=== PATIENT | female | born 1950 | race Caucasian/White ===

== ENCOUNTER → 2020-04-09 10:25 | Outpatient (BNVA) | payer BC, SELFPAY | PROVIDERS: Family Provider Family Medicine; PCP Family Medicine; Visit Provider Family Medicine | DX: R53.83 Other fatigue (principal); U07.1 COVID-19; R53.1 Weakness; E86.0 Dehydration | CPT/HCPCS: 80053; 85025 ==

== ENCOUNTER → 2021-02-19 09:34 | Outpatient (BNVA) | payer BC, SELFPAY | PROVIDERS: Family Provider Family Medicine; PCP Family Medicine; Visit Provider Family Medicine | DX: M25.542 Pain in joints of left hand (principal); M18.9 Osteoarthritis of first carpometacarpal joint, unspecified | CPT/HCPCS: 73130 ==

== ENCOUNTER → 2022-11-19 14:21 | Outpatient (BNVA) | payer MEDICARE, SELFPAY | PROVIDERS: Family Provider Family Medicine; PCP Family Medicine; Visit Provider Nurse Practitioner Family | DX: L50.0 Allergic urticaria (principal); L50.9 Urticaria, unspecified | CPT/HCPCS: 86003 ==

== ENCOUNTER → 2022-11-23 17:20 | Outpatient (BNVA) | payer MEDICARE, SELFPAY | PROVIDERS: Family Provider Family Medicine; PCP Family Medicine; Visit Provider Nurse Practitioner Family | DX: L50.0 Allergic urticaria (principal) | CPT/HCPCS: 86008 ==

== ENCOUNTER → 2023-05-10 10:55 | Outpatient (BNVA) | payer MEDICARE, SELFPAY | PROVIDERS: Family Provider Family Medicine; PCP Family Medicine; Visit Provider Family Medicine | DX: J02.9 Acute pharyngitis, unspecified (principal) | CPT/HCPCS: 87071; 87880 ==

== ENCOUNTER → 2023-08-26 09:07 | Outpatient (BNVA) | payer MEDICARE, SELFPAY | PROVIDERS: Family Provider Family Medicine; PCP Nurse Practitioner Family; Referring Provider Nurse Practitioner Family; Visit Provider Surgery | DX: Z12.11 Encounter for screening for malignant neoplasm of colon (principal); K21.9 Gastro-esophageal reflux disease without esophagitis; T78.1XXA Other adverse food reactions, not elsewhere classified, initial encounter; X58.XXXA Exposure to other specified factors, initial encounter | CPT/HCPCS: 99204 ==

== ENCOUNTER 2023-10-04 10:46 | Outpatient (CLI) | payer MEDICARE, SELFPAY ==
--- NOTE | 2023-10-04 11:00 | MM_ITS ---
WS: [id number] DIAGNOSTIC BILATERAL DIGITAL BREAST TOMOSYNTHESIS MAMMOGRAPHY WITH CAD LEFT breast ultrasound, limited HISTORY: N63.0 - Unspecified lump in unspecified breast COMPARISON: None available. TECHNIQUE: Bilateral craniocaudad, mediolateral oblique, and mediolateral views are submitted with to mosynthesis and SM. Spot compression LEFT MLO. Computer aided detection utilized. Breast composition: There are scattered areas of fibroglandular density. Palpable marker is placed al giacomo the lateral LEFT breast near 3:00 towards the upper outer quadrant. There is a bandlike area of s light increased density. There is no mass. No suspicious grouping of calcifications. LEFT breast ultrasound, limited. Ultrasound is directed to the lateral LEFT breast in the area of previously described mass. There is no abnormality identified. Note: The mass that was clinically described has since resolved. MM/[place] [id number] IMPRESSION: BI-RADS: 2-Benign FOLLOW UP: 1 Year Follow-up
--- NOTE | 2023-10-04 11:15 | US_ITS ---
WS: [id number] DIAGNOSTIC BILATERAL DIGITAL BREAST TOMOSYNTHESIS MAMMOGRAPHY WITH CAD LEFT breast ultrasound, limited HISTORY: N63.0 - Unspecified lump in unspecified breast COMPARISON: None available. TECHNIQUE: Bilateral craniocaudad, mediolateral oblique, and mediolateral views are submitted with to mosynthesis and SM. Spot compression LEFT MLO. Computer aided detection utilized. Breast composition: There are scattered areas of fibroglandular density. Palpable marker is placed al giacomo the lateral LEFT breast near 3:00 towards the upper outer quadrant. There is a bandlike area of s light increased density. There is no mass. No suspicious grouping of calcifications. LEFT breast ultrasound, limited. Ultrasound is directed to the lateral LEFT breast in the area of previously described mass. There is no abnormality identified. Note: The mass that was clinically described has since resolved. US/US breast LT limited* [id number] IMPRESSION: BI-RADS: 2-Benign FOLLOW UP: 1 Year Follow-up
== END 2023-10-04 10:47 | disposition home or self-care (01) ==
LOC: RAD 10:48
PROVIDERS: Family Provider Family Medicine; PCP Nurse Practitioner Family; Visit Provider Nurse Practitioner Family
DX: N63.0 Unspecified lump in unspecified breast (principal); R92.323 Mammographic fibroglandular density, bilateral breasts
CPT/HCPCS: 76642; 77062; G0279

== ENCOUNTER 2023-11-03 06:21 | Day surgery (SDC) | payer MEDICARE, SELFPAY ==
[2023-11-03 06:42] VITALS: BP 125/54; PULSE 67; RESP 16; TEMP 36.5; O2SAT 96; BMI 25.0
[2023-11-03] MEDS: sodium chloride 0.9% 1,000 ML 30 ML IV (06:51)
--- NOTE | 2023-11-03 07:21 | PM.HP ---
Providers/Chief Complaint Primary Care Provider: Hayden Manjarrez DO Chief Complaint: Z12.11, K21.9 History of Present Illness Shae Garay is a 73 year old female Review of Systems General: Reports: 10 or more systems reviewed and unremarkable except in HPI and below Medications/Allergies Home Medications Medication Instructions Recorded Confirmed Last Taken Type pilocarpine HCl 1 applic ophthalmic (eye) DAILY 11/06/19 11/03/23 11/02/23 History diclofenac sodium 1 % topical gel 4 g topical QID #100 grams 02/19/21 11/01/23 Unknown Rx (Voltaren Arthritis Pain) epinephrine 0.3 mg/0.3 mL 0.3 mg (0.3 mL) IM Q10M PRN 11/19/22 11/01/23 Unknown Rx injection syringe anaphylaxis #2 ea fexofenadine 180 mg tablet 180 mg PO Q24H #90 tabs 10/26/23 11/03/23 11/02/23 Rx (Dayana Allergy) clobetasol 0.05 % topical cream 1 applic topical .COMPLEX PRN Rash 11/01/23 11/01/23 Unknown History Allergies Allergy/AdvReac Type Severity Reaction Status Date / Time Alpha-Gal Allergy Severe hives Verified 11/01/23 09:57 (Drptwhril-Jcdzs-7,3-Gala PFSH Acute PFSH: Family History Sister Colon cancer Family/Other Cancer either end of stomach or end of intestines Social History Smoking and tobacco/nicotine status: never used tobacco/nicotine Alcohol intake: current Alcohol intake frequency: holidays/special occasions only Substance/Drug Use: never Vitals/I&O/Wt Last Vital Signs Temp 97.7 F 11/03/23 06:42 Pulse 67 11/03/23 06:42 Resp 16 11/03/23 06:42 BP 125/54 11/03/23 06:42 Pulse Ox 96 11/03/23 06:42 O2 Del Method Room Air 11/03/23 06:42 Weight last 48 hrs Weight 146 lb A&P Assessment and plan (1) Encounter for screening colonoscopy: (2) GERD (gastroesophageal reflux disease): Plan EGD and colonoscopy The risks and benefits of the procedure, including bleeding, infection, intestinal perforation requiring surgery, missed lesion were explained to the patient. The patient is understanding of the risks and wishes to proceed. Attestations Medical Necessity Statement*: Home Coding Level of Care Code Acute Code for Chg Fwd Diagnoses Encounter for screening colonoscopy Z12.11 GERD (gastroesophageal reflux disease) K21.9
--- NOTE | 2023-11-03 07:37 | ANES.PREANE2 ---
Pre-Anesthetic Assessment Height/Weight: Height 5 ft 4 in Weight 146 lb Temp Pulse Resp BP Pulse Ox O2 Del Method 97.7 F 67 16 125/54 96 Room Air 11/03/23 06:42 11/03/23 06:42 11/03/23 06:42 11/03/23 06:42 11/03/23 06:42 11/03/23 06:42 Operation Date: 11/03/23 07:30 Proposed Procedures p Colonoscopy 76933, G0121, Z12.11, 94163, K21.9(Not Applicable) - Janes Coffman DO s EGD(Not Applicable) - Janes Coffman DO Last intake: Intake Last Liquid Date 11/02/23 Last Liquid Time 23:00 Last Solid Date 11/01/23 Last Solid Time 20:00 Social No alcohol and No tobacco Exam alert, oriented x 3, clear to auscultation bilaterally and regular rate & rhythm Airway Submandibular: within normal limits Cervical ROM: within normal limits Mallampati: Class III Dentition: full Comments: Comments: few missing molars Pulmonary None reported Anesthetic Plan ASA status: 2 Anesthesia: MAC Other: No prior issues with anesthesia Patient completed prep Alpha gal noted Patient denies cardiac or pulmonary issues Ejection flow murmur noted on exam, patient states that she has been told this previously. She denies any symptoms METS greater than 4 Plan for MAC anesthesia Medications/Allergies Home Medications Medication Instructions Recorded Confirmed Last Taken Type pilocarpine HCl 1 applic ophthalmic (eye) DAILY 11/06/19 11/03/23 11/02/23 History diclofenac sodium 1 % topical gel 4 g topical QID #100 grams 02/19/21 11/01/23 Unknown Rx (Voltaren Arthritis Pain) epinephrine 0.3 mg/0.3 mL 0.3 mg (0.3 mL) IM Q10M PRN 11/19/22 11/01/23 Unknown Rx injection syringe anaphylaxis #2 ea fexofenadine 180 mg tablet 180 mg PO Q24H #90 tabs 10/26/23 11/03/23 11/02/23 Rx (Dayana Allergy) clobetasol 0.05 % topical cream 1 applic topical .COMPLEX PRN Rash 11/01/23 11/01/23 Unknown History Allergies Allergy/AdvReac Type Severity Reaction Status Date / Time Alpha-Gal Allergy Severe hives Verified 11/01/23 09:57 (Hhzyeghgl-Bpiwx-5,3-Gala Current Medications Generic Name Dose Route Start Last Admin Trade Name Freq PRN Reason Stop Dose Admin Sodium Chloride 1,000 mls @ 30 mls/hr 11/03/23 06:30 11/03/23 06:51 Sodium Chloride 0.9% IV 11/04/23 06:29 30 mls/hr .Q24H LAVON Administration PFSH Anesthesia Family History Sister Colon cancer Family/Other Cancer either end of stomach or end of intestines Social History Smoking and tobacco/nicotine status: never used tobacco/nicotine Alcohol intake: current Alcohol intake frequency: holidays/special occasions only Substance/Drug Use: never Data Anesthesia Cardiac Studies: No Data to Display
[2023-11-03 07:52] VITALS: BP 110/54; PULSE 69; RESP 18; TEMP 36.2; O2SAT 98
[2023-11-03 08:05] VITALS: BP 109/58; PULSE 67; RESP 16; O2SAT 99
--- NOTE | 2023-11-03 13:07 | ANE.PACU2 ---
Inpatient post-anesthesia follow up: Airway intact: Yes Vital signs: Temperature 97.2 F Pulse Rate 67 Respiratory Rate 16 Blood Pressure 109/58 Pulse Oximetry 99 Oxygen Delivery Me thod Room Air Oxygen Flow Rate Fraction of Inspir ed Oxygen Hydration adequate: Yes Nausea and vomiting: No Pain level: 1 Mental status: Baseline
== END 2023-11-03 08:34 | disposition home or self-care (01) ==
PROVIDERS: Family Provider Family Medicine; PCP Family Medicine; Visit Provider Surgery
PROC: 0DJD8ZZ Inspection of Lower Intestinal Tract, Via Natural or Artificial Opening Endoscopic (ICD-10-PCS; CPT 45378; principal; 2023-11-03 07:30)
PROC: 0DJ08ZZ Inspection of Upper Intestinal Tract, Via Natural or Artificial Opening Endoscopic (ICD-10-PCS; CPT 43235; 2023-11-03 07:30)
DX: Z12.11 Encounter for screening for malignant neoplasm of colon (principal); K21.9 Gastro-esophageal reflux disease without esophagitis; K29.50 Unspecified chronic gastritis without bleeding
CPT/HCPCS: 43239; 88305; 88342; G0121; J2704; J7030

== ENCOUNTER → 2023-11-22 10:07 | Outpatient (BNVA) | payer MEDICARE, SELFPAY | PROVIDERS: Family Provider Family Medicine; PCP Family Medicine; Visit Provider Surgery | DX: R03.0 Elevated blood-pressure reading, without diagnosis of hypertension; K80.50 Calculus of bile duct without cholangitis or cholecystitis without obstruction; R14.0 Abdominal distension (gaseous); Z91.018 Allergy to other foods; K21.9 Gastro-esophageal reflux disease without esophagitis | CPT/HCPCS: 99214 ==

== ENCOUNTER 2023-12-03 09:17 | Outpatient (CLI) | payer MEDICARE, SELFPAY ==
--- NOTE | 2023-12-03 09:30 | US_ITS ---
WS: [id number] RIGHT UPPER QUADRANT ULTRASOUND HISTORY: abdominal pain COMPARISON: None available. Liver: 13.8 cm in length. Normal size liver and echogenicity. No bile duct dilatation or mass. Portal Vein: Normal hepatopetal flow with monophasic waveform. Gallbladder: Normally distended gallbladder with no stones or wall thickening. CBD: 0.3 cm Pancreas: Normal size and echogenicity. Right kidney: 8.2 cm in length. Normal size and echogenicity. No hydronephrosis or mass. Aorta and IVC: Unremarkable abdominal aorta and IVC. No ascites. US/US gall bladder [id number] IMPRESSION: Normal right upper quadrant ultrasound.
== END 2023-12-03 09:18 | disposition home or self-care (01) ==
LOC: RAD 09:18
PROVIDERS: Family Provider Family Medicine; PCP Family Medicine; Visit Provider Surgery
DX: R10.9 Unspecified abdominal pain (principal)
CPT/HCPCS: 76705

== ENCOUNTER 2024-01-04 07:38 | Outpatient (CLI) | payer MEDICARE, SELFPAY ==
--- NOTE | 2024-01-04 08:00 | NM_ITS ---
WS: [id number] NUCLEAR MEDICINE HIDA SCAN WITH GALLBLADDER EJECTION FRACTION HISTORY: abdominal pain COMPARISON: 12/03/2023 TECHNIQUE: The patient was intravenously injected with 5.0 mCi of TC99m Mebrofenin. Immediate imaging over the right upper quadrant was followed by 5 minute image and additional images for a total of 60 minutes. Normal uptake of radiotracer throughout the liver. Activity identified in the gallbladder at 10 minutes and well distended by 60 minutes. Activity in the proximal small bowel was seen by 20 minutes. Good washout of the radiotracer from the liver by 60 minutes. The patient then drank 8 ounces of Ensure Plus. Ejection fraction at 60 minutes was 82%. Normal GB ej ection fraction is 35-75%. Post fatty meal symptoms: None. NM/NM hepatobiliary w phar* [id number] IMPRESSION: 1. Normal HIDA scan. 2. Normal gallbladder ejection fraction.
== END 2024-01-04 07:39 | disposition home or self-care (01) ==
PROVIDERS: Family Provider Family Medicine; PCP Family Medicine; Visit Provider Surgery
DX: R10.9 Unspecified abdominal pain (principal)
CPT/HCPCS: 78227; A9537

== ENCOUNTER → 2024-01-10 10:51 | Outpatient (BNVA) | payer MEDICARE, SELFPAY | PROVIDERS: Family Provider Family Medicine; PCP Family Medicine; Visit Provider Surgery | DX: K82.8 Other specified diseases of gallbladder (principal); K80.50 Calculus of bile duct without cholangitis or cholecystitis without obstruction; R14.0 Abdominal distension (gaseous) | CPT/HCPCS: 99214 ==

== ENCOUNTER → 2024-01-12 09:30 | Outpatient (BNVA) | payer MEDICARE, SELFPAY | PROVIDERS: Family Provider Family Medicine; PCP Family Medicine; Visit Provider Nurse Practitioner Family | DX: Z13.6 Encounter for screening for cardiovascular disorders (principal); L50.0 Allergic urticaria | CPT/HCPCS: 80053; 80061; 86003 ==

== ENCOUNTER 2024-01-25 06:38 | Day surgery (SDC) | payer MEDICARE, SELFPAY ==
[2024-01-25] VITALS (17 sets, daily range): BP systolic 91–146; BP diastolic 37–72; PULSE 57–79; RESP 16–18; TEMP 36.1–36.2; O2SAT 93–98; BMI 25.2
--- NOTE | 2024-01-25 06:55 | W.PM.OPSUD ---
Surgery/Procedure H&P Update DATE OF PROCEDURE: January 25, 2024 DATE H&P PERFORMED: 01/10/24 H&P UPDATE INFORMATION: I have reviewed H&P completed within last 30 days, I have examined patient prior to procedure and No changes to prior documentation PLANNED PROCEDURE: Operation Date: 01/25/24 08:20 Proposed Procedures p Laparoscopic Cholecystectomy 07071, K80.50, k82.8(Not Applicable) - Janes Coffman, DO
[2024-01-25] MEDS: sodium chloride 0.9% 1,000 ML 30 ML IV (07:19)
[2024-01-25] MEDS: ceFAZolin 2,000 mg SDV 2000 MG IVP (07:56)
--- NOTE | 2024-01-25 07:58 | ANES.PREANE2 ---
Pre-Anesthetic Assessment Height/Weight: Height 5 ft 4 in Weight 147 lb Temp Pulse Resp BP Pulse Ox O2 Del Method 97.2 F L 63 18 146/67 97 Room Air 01/25/24 07:02 01/25/24 07:02 01/25/24 07:02 01/25/24 07:02 01/25/24 07:02 01/25/24 07:02 Operation Date: 01/25/24 08:20 Proposed Procedures p Laparoscopic Cholecystectomy 38307, K80.50, k82.8(Not Applicable) - Janes Coffman DO Last intake: Intake Last Liquid Date 01/24/24 Last Liquid Time 19:30 Last Solid Date 01/24/24 Last Solid Time 19:30 Social No alcohol and No tobacco Exam alert, oriented x 3, clear to auscultation bilaterally and regular rate & rhythm Airway Submandibular: within normal limits Cervical ROM: within normal limits Mallampati: Class III Dentition: full Anesthetic Plan ASA status: 2 Anesthesia: General Other: No prior issues with anesthesia NPO since yesterday History of GERD on Protonix Labs 01/12/2024 reviewed and acceptable for procedure Patient denies any cardiac or pulmonary issues METs greater than 4 Plan for general anesthesia Medications/Allergies Home Medications Medication Instructions Recorded Confirmed Last Taken Type pilocarpine HCl 1 applic ophthalmic (eye) DAILY 11/06/19 01/24/24 01/23/24 History diclofenac sodium 1 % topical gel 4 g topical QID #100 grams 02/19/21 01/24/24 Unknown Rx (Voltaren Arthritis Pain) epinephrine 0.3 mg/0.3 mL 0.3 mg (0.3 mL) IM Q10M PRN 11/19/22 01/24/24 Unknown Rx injection syringe anaphylaxis #2 ea fexofenadine 180 mg tablet 180 mg PO Q24H #90 tabs 10/26/23 01/24/24 11/02/23 Rx (Dayana Allergy) clobetasol 0.05 % topical cream 1 applic topical .COMPLEX PRN Rash 11/01/23 01/24/24 01/22/24 History pantoprazole 40 mg tablet,delayed 40 mg PO DAILY #30 tabs 11/03/23 01/24/24 01/24/24 Rx release Allergies Allergy/AdvReac Type Severity Reaction Status Date / Time Alpha-Gal Allergy Severe hives Verified 01/10/24 10:55 (Btqquhyaf-Gefzk-2,3-Gala Current Medications Generic Name Dose Route Start Last Admin Trade Name Freq PRN Reason Stop Dose Admin Sodium Chloride 1,000 mls @ 30 mls/hr 01/25/24 07:00 01/25/24 07:19 Sodium Chloride 0.9% IV 01/26/24 06:59 30 mls/hr .Q24H LAVON Administration PFSH Anesthesia Family History Sister Colon cancer Family/Other Cancer either end of stomach or end of intestines Social History Smoking and tobacco/nicotine status: never used tobacco/nicotine Alcohol intake: current Alcohol intake frequency: holidays/special occasions only Substance/Drug Use: never Data Anesthesia Cardiac Studies: No Data to Display
[2024-01-25] MEDS: lidocaine-epi 2% PF 1:200,000 20 mL SDV XX (08:22)
--- NOTE | 2024-01-25 08:45 | P.OP_ITS ---
Operative Report Date of procedure: January 25, 2024 Surgeon: Janes Coffman DO Brief History: This is a very pleasant 74-year-old female who presented my office with abdominal pain. She is diagnosed with biliary dyskinesia. Laparoscopic cholecystectomy was indicated. The risks and benefits were explained and documented. Procedure: Preoperative diagnosis: Biliary dyskinesia Postoperative diagnosis: Same Procedure performed: Laparoscopic cholecystectomy Surgeon: Dr. Janes Coffman DO Estimated blood loss: 5 mL Specimens: Gallbladder to pathology Complications: None apparent Description of procedure: Patient was wheeled into the operative room and placed on the OR table in a supine position. Abdomen was inspected prepped and draped in usual sterile fashion. Time-out was performed and all present were in agreement. A 15 blade scalp was used to make a stab incision in the left upper quadrant and intra- abdominal insufflation was achieved using a Veress needle. After localizing the tissue incisions were made and a 5 millimeter trocar was placed into the umbilicus as well as 2 in the right upper quadrant. A 12 millimeter trocar was placed in the epigastrium. Gallbladder was grasped and elevated. The triangle of Calot was carefully dissected using blunt dissection and electrocautery until the triangle of Calot clearly identified. The cystic duct was clipped proximally and double clipped distally. The duct was then ligated proximally. The cystic artery was doubly clipped and ligated. The gallbladder was then removed from the liver bed using electrocautery. The gallbladder was removed from the abdomen using an Endo-Catch bag through the epigastric incision. The liver bed was inspected and no bleeding was seen. The abdomen was irrigated and suctioned. All ports removed. Skin was washed and dried. Incisions were closed with 4-0 Monocryl in a subcuticular interrupted fashion. Skin glue was applied. Patient tolerated the procedure well.
[2024-01-25] MEDS: fentaNYL 50 mcg/mL INJ 2mL IVP (09:30)
[2024-01-25] MEDS: ondansetron 2 mg/ML SDV 2 mL 4 MG IVP (09:40)
[2024-01-25] MEDS: HYDROcodone-acetaminophen 7.5-325 mg Tablet 1 TAB PO (10:47)
--- NOTE | 2024-01-25 11:45 | ANE.PACU2 ---
Inpatient post-anesthesia follow up: Airway intact: Yes Vital signs: Temperature 97 F Pulse Rate 65 Respiratory Rate 18 Blood Pressure 124/56 Pulse Oximetry 98 Oxygen Delivery Me thod Room Air Oxygen Flow Rate Fraction of Inspir ed Oxygen Hydration adequate: Yes Nausea and vomiting: No Pain level: 1 Mental status: Baseline
== END 2024-01-25 11:45 | disposition home or self-care (01) ==
PROVIDERS: Family Provider Family Medicine; PCP Family Medicine; Visit Provider Surgery
PROC: 0FT44ZZ Resection of Gallbladder, Percutaneous Endoscopic Approach (ICD-10-PCS; CPT 47562; principal; 2024-01-25 08:10)
DX: K81.1 Chronic cholecystitis (principal); K21.9 Gastro-esophageal reflux disease without esophagitis
CPT/HCPCS: 47562; 88304; J0690; J1100; J2250; J2405; J2710; J3010; J3490; J7030

== ENCOUNTER → 2024-02-07 09:07 | Outpatient (BNVA) | payer MEDICARE, SELFPAY | PROVIDERS: Family Provider Family Medicine; PCP Family Medicine; Visit Provider Surgery | DX: Z91.018 Allergy to other foods (principal); K21.9 Gastro-esophageal reflux disease without esophagitis | CPT/HCPCS: 99214 ==

== ENCOUNTER → 2024-07-26 13:00 | Outpatient (BNVA) | payer MEDICARE, SELFPAY | PROVIDERS: PCP Nurse Practitioner Family; Visit Provider Nurse Practitioner Family | DX: Z91.018 Allergy to other foods (principal); R10.9 Unspecified abdominal pain; R49.0 Dysphonia | CPT/HCPCS: 80053; 82785; 83520; 85025; 86001; 86003 ==

== ENCOUNTER → 2024-08-15 14:16 | Outpatient (BNVA) | payer MEDICARE, SELFPAY | PROVIDERS: PCP Nurse Practitioner Family; Visit Provider Nurse Practitioner Family | DX: N39.0 Urinary tract infection, site not specified (principal) | CPT/HCPCS: 81000; 87086 ==

== ENCOUNTER 2024-10-27 14:48 | Outpatient (CLI) | payer MEDICARE, SELFPAY ==
--- NOTE | 2024-10-27 15:00 | MM_ITS ---
WS: [id number] BILATERAL 3D TOMOSYNTHESIS DIGITAL SCREENING MAMMOGRAPHY WITH CAD CLINICAL INFORMATION: Z12.39 - Encounter for other screening for malignant neop... HISTORY: Screening mammogram. No current complaints. COMPARISON: 2023 diagnostic mammogram and ultrasound TECHNIQUE: Bilateral CC and MLO views. FINDINGS: Scattered fibroglandular densities bilaterally. Area of increasing spiculation upper outer LEFT breast measuring 7 mm. This is more conspicuous compared to previous. Recommend further evaluation with LEFT breast diagnostic mammography and ultrasound. Normal RIGHT breast. MM/MM [facility] tomosynthesis [id number] IMPRESSION: DENSITY: There are scattered areas of fibroglandular density. BI-RADS: 0 - Incomplete: Need additional imaging evaluation. FOLLOW UP: Need Additional Imaging Recommend LEFT breast diagnostic mammography and ultrasound.
== END 2024-10-27 14:49 | disposition home or self-care (01) ==
LOC: RAD 14:49
PROVIDERS: PCP Nurse Practitioner Family; Visit Provider Nurse Practitioner Family
DX: Z12.31 Encounter for screening mammogram for malignant neoplasm of breast (principal); R92.323 Mammographic fibroglandular density, bilateral breasts; R92.8 Other abnormal and inconclusive findings on diagnostic imaging of breast
CPT/HCPCS: 77063; 77067

== ENCOUNTER → 2024-11-01 09:00 | Outpatient (BNVA) | payer MEDICARE, SELFPAY | PROVIDERS: PCP Nurse Practitioner Family; Visit Provider Nurse Practitioner Family | DX: E78.00 Pure hypercholesterolemia, unspecified (principal) | CPT/HCPCS: 80053; 80061 ==

== ENCOUNTER 2024-11-16 13:48 | Outpatient (CLI) | payer MEDICARE, SELFPAY ==
--- NOTE | 2024-11-16 14:00 | MM_ITS ---
WS: [id number] LEFT 3D TOMOSYNTHESIS DIGITAL MAMMOGRAPHY WITH CAD CLINICAL INFORMATION: R92.322 - Mammographic fibroglandular density, left breast HISTORY: Additional views COMPARISON: 10/27/2024 TECHNIQUE: 3 views of the left breast were obtained. FINDINGS: Scattered fibroglandular densities of the left breast. Again seen is the area of spiculation upper outer LEFT breast measuring 7 mm. This partially compresses out on the spot compression views with slight persistent parenchymal irregularity. Ultrasound described below. ULTRASOUND BREAST LEFT TECHNIQUE: Ultrasound left breast focused area of concern. CLINICAL INFORMATION: R92.322 - Mammographic fibroglandular density, left breast FINDINGS: Ultrasound upper outer LEFT breast. Normal underlying parenchymal tissue. No cystic or solid lesions. No suspicious findings in the area of concern. Recommend return to annual screening mammography. MM/MM diag LT tomosynthesis [id number] IMPRESSION: DENSITY: There are scattered areas of fibroglandular density. BI-RADS: 2 - Benign. FOLLOW UP: 1 Year Follow-up Recommend return to annual screening mammography.
--- NOTE | 2024-11-16 14:30 | US_ITS ---
WS: [id number] LEFT 3D TOMOSYNTHESIS DIGITAL MAMMOGRAPHY WITH CAD CLINICAL INFORMATION: R92.322 - Mammographic fibroglandular density, left breast HISTORY: Additional views COMPARISON: 10/27/2024 TECHNIQUE: 3 views of the left breast were obtained. FINDINGS: Scattered fibroglandular densities of the left breast. Again seen is the area of spiculation upper outer LEFT breast measuring 7 mm. This partially compresses out on the spot compression views with slight persistent parenchymal irregularity. Ultrasound described below. ULTRASOUND BREAST LEFT TECHNIQUE: Ultrasound left breast focused area of concern. CLINICAL INFORMATION: R92.322 - Mammographic fibroglandular density, left breast FINDINGS: Ultrasound upper outer LEFT breast. Normal underlying parenchymal tissue. No cystic or solid lesions. No suspicious findings in the area of concern. Recommend return to annual screening mammography. US/US breast LT limited* [id number] IMPRESSION: DENSITY: There are scattered areas of fibroglandular density. BI-RADS: 2 - Benign. FOLLOW UP: 1 Year Follow-up Recommend return to annual screening mammography.
== END 2024-11-16 13:49 | disposition home or self-care (01) ==
PROVIDERS: PCP Nurse Practitioner Family; Visit Provider Nurse Practitioner Family
DX: R92.322 Mammographic fibroglandular density, left breast (principal); N60.32 Fibrosclerosis of left breast
CPT/HCPCS: 76642; 77061; G0279